=== PATIENT | female | born 1970 | race Caucasian/White ===

== ENCOUNTER 2019-01-09 16:34 | Observation (INO) ==
--- NOTE | 2019-01-09 16:47 | Emergency Department Note ---
Disposition Clinical Impression: EKG abnormality Chest pain Qualifiers: Chest pain type: unspecified Qualified Code(s): R07.9 - Chest pain, unspecified Pericarditis Qualifiers: Pericarditis type: idiopathic Chronicity: acute Qualified Code(s): I30.0 - Acute nonspecific idiopathic pericarditis Disposition: Admitted As Inpatient Condition: Undetermined Referrals: Nikolas Abbasi MD [Primary Care Provider] - Forms: ED Satisfaction Letter Time of Disposition: 19:00 Chest Pain HPI - General Chief Complaint: ED Chest Pain Stated Complaint: EKG Changes Time Seen by Provider: 01/09/19 16:43 Source: patient Mode of arrival: wheelchair Limitations: no limitations Vital Signs Reviewed: Yes Nursing Notes Reviewed: Yes - History of Present Illness HPI Narrative: 48-year-old female with no previous medical history arrives to the emergency Department complaint of pleuritic type chest pain that is dull in nature that exacerbated with taking a deep breath that is retrosternal radiating into her lower jaw. Patient states this started, days ago is progressively worse this morning. Went to PCP this morning they performed an EKG which demonstrates mildly diffuse ST elevation or MT depression. Patient was noted to be tachycardic. The patient had a near syncopal episode and that is what triggered her going to the PCP. Patient denies any associated difficulty breathing at this time and states that she has been experiencing intermittent episodes of di fficulty breathing. No history of DVT or PE, no hemoptysis, unilateral excellent, recent surgeries or immobilizations. Patient states she has never been experiencing anything like this in the past. She denies any prodromal symptoms to include recent illness, fever, cough, chills. - Related Data Previous Rx's Medication Instructions Recorded Ciprofloxacin OPTH Soln [Ciloxan 2 drop LEFT EYE Q6HR #1 bottle 11/14/15 OPTH Soln] Hydrocodone/Acetaminophen [[place] 1 tab PO TID PRN #10 tab 11/14/15 5-325 Tablet] Allergies Allergy/AdvReac Type Severity Reaction Status Date / Time fluoxetine AdvReac Hives Verified 11/14/15 21:01 All systems ED: reviewed and negative except as stated. Constitutional: Reports: weakness. Denies: fever, chills ENT ED: Denies: dysphagia Cardiovascular: Reports: chest pain, dyspnea on exertion, syncope (near syncope). Denies: orthopnea, edema Respiratory: Reports: dyspnea. 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 history - Social History Smoking Status: Never smoker Alcohol use: Reports: none Drug use: Reports: none Physical Exam - General Limitations: no limitations General appearance: alert, in no apparent distress - Head Head exam: atraumatic, normocephalic, normal inspection - Eye Eye exam: Present: normal appearance, PERRL, EOMI - ENT ENT exam: normal exam, normal oropharynx, mucous membranes moist - Neck Neck exam: Present: normal inspection, full ROM, trachea midline - Chest Chest inspection: Present: normal inspection, symmetric chest wall rise - Respiratory Respiratory exam: Present: normal lung sounds bilaterally - Cardiovascular Cardiovascular exam: Present: normal rhythm, tachycardia, normal heart sounds - Abdominal Exam Abdominal exam: Present: soft, Non-Tender. Absent: tenderness, distention, guarding, rebound, rigidity - Extremities Exam Extremities exam: Present: normal inspection, full ROM, normal capillary refill. Absent: tenderness, pedal edema - Neurological Exam Neurological exam: Present: alert, oriented X3 - Skin Skin exam: Present: warm, dry, intact, normal color Course Vital Signs Temperature 99.1 F 01/09/19 16:42 Pulse Rate 108 01/09/19 16:42 Respiratory Rate 18 01/09/19 16:42 Blood Pressure 107/69 01/09/19 16:42 O2 Sat by Pulse Oximetry 98 01/09/19 16:42 Temperature 99.1 F 01/09/19 16:42 Pulse Rate 112 01/09/19 18:26 Respiratory Rate 18 01/09/19 18:26 Blood Pressure 95/74 01/09/19 18:26 O2 Sat by Pulse Oximetry 97 01/09/19 18:26 Oxygen Delivery Oxygen Delivery Room Air Chest Pain - MDM Narrative Medical decision making narrative: His workup in the emergency department demonstrates findings consistent with pericarditis. Patient was given aspirin and colchicine here in the ED. Chest x-ray, troponin, d-dimer all negative. The patient is a mild leukocytosis well. I spoke with on-call cardiology, Dr. Hoffman who agree to plan of care. No further recommendations noted. Patient will be admitted to the hospital this time. Accepted by Dr. Hudson. - Lab Data Lab results reviewed: Yes I reviewed the patient's lab results. Result diagrams: 01/09/19 16:44 01/09/19 16:44 Lab Results 01/09/19 01/09/19 01/09/19 Range/Units 16:44 16:44 16:44 WBC 11.3 H (4.3-11.1) K/mcL RBC 4.01 (3.82-4.97) M/mcL Hgb 12.7 (11.5-15.4) g/dL Hct 37.5 (35.3-44.9) % MCV 93.5 (83.0-100.0) fL MCH 31.7 (28.0-33.3) pg MCHC 33.9 (31.6-35.5) g/dL RDW 11.3 L (11.5-14.5) % Plt Count 231 (140-400) K/mcL MPV 10.0 (9.4-12.4) fL Immature Gran % 0.4 (0-4) % Seg Neutrophils % 77.8 % Lymphocytes % 15.3 % Monocytes % 5.5 % Eosinophils % 0.6 % Basophils % 0.4 % Neutrophils # 8.8 (1.6-8.9) K/mcL Lymphocytes # 1.7 (0.6-4.6) K/mcL Monocytes # 0.6 (0.0-1.3) K/mcL Eosinophils # 0.1 (0.0-0.6) K/mcL Basophils # 0.0 (0.0-0.2) K/mcL D-Dimer 273 (0-500) ng/mLFEU Sodium 142 (136-145) mEq/L Potassium 3.8 (3.5-5.1) mEq/L Chloride 106 (98-107) mEq/L Carbon Dioxide 26 (23-29) mEq/L BUN 12 (6-20) mg/dL Creatinine 0.67 (0.60-1.20) mg/dL Est GFR ( Amer) > 60 (> 60) Est GFR (Non-Af Amer) > 60 (> 60) BUN/Creatinine Ratio 18 (6-26) Glucose 118 H (70-105) mg/dL Calculated Osmolality 295 (280-300) Calcium 9.4 (8.6-10.3) mg/dL Troponin I < 0.03 (< 0.04) ng/mL - Radiology Data Radiology results reviewed: Yes I reviewed the patient's radiology results. Chest X-Ray 01/09/19 16:43 IMPRESSION: No acute findings. D/ / Alfred Day / Alfred Day Interpreting Provider: Alfred Day - EKG Data EKG attestation: Yes I reviewed and interpreted this EKG. EKG results narrative: EKG: Heart rate 105 beats for minute. Sinus tachycardia. No ST depression noted. Mild ST depression but appears baseline compared to TP interval. There does appear to be diffuse MT depression that is noted throughout particular lead to, aVF, V5.
[2019-01-09 17:01] LABS: Basophils % 0.4 %; Eosinophils # 0.1 K/mcL (0.0-0.6); Eosinophils % 0.6 %; Hematocrit 37.5 % (35.3-44.9); Hemoglobin 12.7 g/dL (11.5-15.4); Immature Granulocytes % 0.4 % (0-4); Lymphocytes # 1.7 K/mcL (0.6-4.6); Lymphocytes % 15.3 %; Mean Corpuscular HGB Conc 33.9 g/dL (31.6-35.5); Mean Corpuscular Hemoglobin 31.7 pg (28.0-33.3); Mean Corpuscular Volume 93.5 fL (83.0-100.0); Monocytes # 0.6 K/mcL (0.0-1.3); Monocytes % 5.5 %; Neutrophils # 8.8 K/mcL (1.6-8.9); Platelet Count 231 K/mcL (140-400); Red Blood Count 4.01 M/mcL (3.82-4.97); Red Cell Distribution Width 11.3 % (11.5-14.5); Segmented Neutrophils % 77.8 %
[2019-01-09 17:54] LABS: BUN/Creatinine Ratio 18 (6-26); Blood Urea Nitrogen 12 mg/dL (6-20); Calcium 9.4 mg/dL (8.6-10.3); Carbon Dioxide 26 mEq/L (23-29); Chloride 106 mEq/L (98-107); Glucose 118 mg/dL (70-105); Osmolality,Calculated 295 (280-300); Potassium 3.8 mEq/L (3.5-5.1); Sodium 142 mEq/L (136-145); Troponin I < 0.03 ng/mL (< 0.04); eGFR For Non-African Americans > 60 (> 60)
[2019-01-09] MEDS ORDERED: Colchicine 0.6 MG TABLET PO ONE (18:01)
[2019-01-09] MEDS ORDERED: Aspirin 325 MG TABLET PO ONE (18:01)
--- NOTE | 2019-01-09 18:04 | Emergency Department Note ---
Disposition Clinical Impression: EKG abnormality Chest pain Qualifiers: Chest pain type: unspecified Qualified Code(s): R07.9 - Chest pain, unspecified Disposition: Admitted As Inpatient Condition: Good Forms: ED Satisfaction Letter Time of Disposition: 18:04 Chest Pain HPI - General Chief Complaint: ED Chest Pain Stated Complaint: EKG Changes Time Seen by Provider: 01/09/19 16:43 Source: patient Mode of arrival: wheelchair Limitations: no limitations - History of Present Illness Severity scale (1-10): 4 - Related Data Previous Rx's Medication Instructions Recorded Ciprofloxacin OPTH Soln [Ciloxan 2 drop LEFT EYE Q6HR #1 bottle 11/14/15 OPTH Soln] Hydrocodone/Acetaminophen [[place] 1 tab PO TID PRN #10 tab 11/14/15 5-325 Tablet] Allergies Allergy/AdvReac Type Severity Reaction Status Date / Time fluoxetine AdvReac Hives Verified 11/14/15 21:01 Constitutional: Reports: weakness. Denies: fever, chills ENT ED: Denies: dysphagia Cardiovascular: Reports: chest pain, dyspnea on exertion, syncope (near syncope). Denies: orthopnea, edema Respiratory: Reports: dyspnea. 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 history - Social History Smoking Status: Never smoker Alcohol use: Reports: none Drug use: Reports: none Physical Exam - General Limitations: no limitations General appearance: alert, in no apparent distress Course Vital Signs Temperature 99.1 F 01/09/19 16:42 Pulse Rate 108 01/09/19 16:42 Respiratory Rate 18 01/09/19 16:42 Blood Pressure 107/69 01/09/19 16:42 O2 Sat by Pulse Oximetry 98 01/09/19 16:42 Temperature 99.1 F 01/09/19 16:42 Pulse Rate 105 01/09/19 17:46 Respiratory Rate 16 01/09/19 17:46 Blood Pressure 90/57 01/09/19 17:46 O2 Sat by Pulse Oximetry 97 01/09/19 17:46 Oxygen Delivery Oxygen Delivery Room Air Chest Pain - Lab Data Result diagrams: 01/09/19 16:44 01/09/19 16:44 Lab Results 01/09/19 01/09/19 01/09/19 Range/Units 16:44 16:44 16:44 WBC 11.3 H (4.3-11.1) K/mcL RBC 4.01 (3.82-4.97) M/mcL Hgb 12.7 (11.5-15.4) g/dL Hct 37.5 (35.3-44.9) % MCV 93.5 (83.0-100.0) fL MCH 31.7 (28.0-33.3) pg MCHC 33.9 (31.6-35.5) g/dL RDW 11.3 L (11.5-14.5) % Plt Count 231 (140-400) K/mcL MPV 10.0 (9.4-12.4) fL Immature Gran % 0.4 (0-4) % Seg Neutrophils % 77.8 % Lymphocytes % 15.3 % Monocytes % 5.5 % Eosinophils % 0.6 % Basophils % 0.4 % Neutrophils # 8.8 (1.6-8.9) K/mcL Lymphocytes # 1.7 (0.6-4.6) K/mcL Monocytes # 0.6 (0.0-1.3) K/mcL Eosinophils # 0.1 (0.0-0.6) K/mcL Basophils # 0.0 (0.0-0.2) K/mcL D-Dimer 273 (0-500) ng/mLFEU Sodium 142 (136-145) mEq/L Potassium 3.8 (3.5-5.1) mEq/L Chloride 106 (98-107) mEq/L Carbon Dioxide 26 (23-29) mEq/L BUN 12 (6-20) mg/dL Creatinine 0.67 (0.60-1.20) mg/dL Est GFR ( Amer) > 60 (> 60) Est GFR (Non-Af Amer) > 60 (> 60) BUN/Creatinine Ratio 18 (6-26) Glucose 118 H (70-105) mg/dL Calculated Osmolality 295 (280-300) Calcium 9.4 (8.6-10.3) mg/dL Troponin I < 0.03 (< 0.04) ng/mL Attestation Statement - Attestation Attestation: I examined this patient and my medical decision-making was reviewed with the Resident Physician. I agree with the documented findings, disposition and treatment plan as described except to the extent set forth below. 48-year-old female presents to the emergency room for chest pain. Started around noon. Started shortly thereafter eating a hamburger today. She denied any recent sickness or illness in the past few days. No fevers or chills. No cough or sputum production. No vomiting or diarrhea. No history of coronary disease. No history of pulmonary embolus. She has no history of any blood clotting problems. She states the pain was, sharp and went up to the top of her chest. She states the pain is better when she sits up and it is worse when she lies flat. She has no history of pericarditis. Her EKG was concerning for some [place] depression with some ST elevations with no reciprocal changes which made us think this could be more related to a pericarditis issue. Again she denies any recent sickness or illness or any viral infections recently. Her troponin was negative. Chest x-ray was negative. Remaining lab work was negative. We will consult with cardiology. Patient will need to be admitted. EKG was reviewed with the resident and I agree with his documentation.
--- NOTE | 2019-01-09 20:09 | Internal Med History&Physical ---
<Daniel Shen S - Last Filed: 01/09/19 21:54> Date of Encounter: 01/09/19 Time of Encounter: 20:56 Internal Medicine - H&P: HPI Chief complaint: chest pain Admitted From: Home Plans for Post Hospital Care: Home History of present illness: Ms. Mcduffie is a 48 year old female with no significant PMH. She presented to the ER with the chief complaint of sudden onset chest pain that was worse with deep breathing and was dull and radiated into her jaw. She denies any radiation to the back or down her arm but did report some numbness/tingling down the right arm. She said she has had worsening weakness for months and over the last few days it has gotten acutely worse. She states that the chest pain was abrupt in onset and she had some SOB with it, which has now resolves. She went to her family doctor who did an EKG showing ST segment changes and NE depressions. She denies any recent illness, travel outside the country, flu like symptoms, contact with sick children. She denies history of IVDU, HIV, or blood borne infxn. She denies palpiltations, N/V/D, abdominal pain, fevers/chills, or hemoptysis. She is otherwise without complaint. She was found to have ST segment changes and a depressed NE interval on EKG in the ER. Troponin was negative. D- dimer within normal limits. XR chest negative for acute change. She will be admitted for further evaluation. Past Med Surg Social Fam HX - Past Medical History Medical history: no medical history - Past Surgical History Surgical History: non-contributory - Social History Smoking Status: Never smoker Smokeless Tobacco Status: No Alcohol use: none Drug use: none - Family History Mother Adopted: No Race: Hx Family Respiratory Disorders: Yes Father Adopted: No Race: Hx Family Endocrine Disorder: Yes Internal Medicine - H&P: Meds Allergy/AdvReac Type Severity Reaction Status Date / Time fluoxetine AdvReac Hives Verified 11/14/15 21:01 All Systems PM: A 10-system review of systems was performed and is negative for pertinent findings except as documented above in the HPI. - Constitutional Constitutional: lethargy, malaise, weakness, no chills, no fever(s) - EENT Eyes: no blurry vision, no change in vision Ears: no tinnitus Nose, mouth and throat: no bleeding gums, no epistaxis - Cardiovascular Cardiovascular ROS IM: chest pain, dyspnea, dyspnea on exertion - Respiratory Respiratory: dyspnea, dyspnea on exertion, pain on inspiration, no cough, no hemoptysis, no excessive phlegm production - Gastrointestinal Gastrointestinal: no abdominal pain, no diarrhea, no nausea, no vomiting - Genitourinary Genitourinary: no dysuria, no hematuria - Musculoskeletal Musculoskeletal ROS IM: muscle weakness, myalgias, tingling - Integumentary Integumentary IM: no rash, no skin ulcer - Neurological Neurological ROS: dizziness, numbness, tingling, weakness - Hematologic/Lymphatic Hematologic/Lymphatic: no easy bleeding, no easy bruising - Constitutional Vitals: Temp Pulse Resp BP Pulse Ox 99.1 F 106 16 94/62 98 01/09/19 16:42 01/09/19 19:33 01/09/19 19:33 01/09/19 19:33 01/09/19 19:33 General appearance: Present: cooperative, mild distress, A&O X 3, answers questions appropriately Exam: general - aox3, mildly uncomfortable, laying in bed, speaking in full sentences heent - MMM, NCAT, no scleral icterus neck - no jvd, trachea midline cardio - tacycardia, s1s2 cta no mrg back - no rash, brusing or tenderness lungs - ctab, no wheeze/rhonchi/rales, not in respiratory distress abd - soft, ntnd, no peritoneal signs or rebound/guarding extremities - moves all extremities equally, strength 5/5 UE/LE neuro - no FND, sensation intact psych - anxious skin - warm,dry,intact Internal Med - H&P Results - Labs CBC & Chem 7: 01/09/19 16:44 01/09/19 16:44 Labs: Short CBC 01/09/19 Range/Units 16:44 WBC 11.3 H (4.3-11.1) K/mcL Hgb 12.7 (11.5-15.4) g/dL Hct 37.5 (35.3-44.9) % Plt Count 231 (140-400) K/mcL Neutrophils # 8.8 (1.6-8.9) K/mcL BMP 05/23/19 16:44 Sodium 142 Potassium 3.8 Chloride 106 Carbon Dioxide 26 BUN 12 Creatinine 0.67 Glucose 118 H Calcium 9.4 Cardiac Enzymes 01/09/19 Range/Units 16:44 Troponin I < 0.03 (< 0.04) ng/mL - Impressions ITS Impressions Chest X-Ray 01/09/19 16:43 IMPRESSION: No acute findings. D/ / Alfred Day / Alfred Day Interpreting Provider: Alfred Day - Assessment and Plan (1) Chest pain Current Visit: Yes Status: Acute Assessment and plan: Pt reported sudden onset chest pain radiating into the jaw this afternoon - (+) weakness x 2-3 months, no weight loss - denies hx of travel, contact with sick peoples, or new medications - denies family hx or personal hx of rheumatologic disorders - sister does have a hx of pericarditis, unknown precipitant Likely secondary to pericarditis EKG showed diffuse ST elevations, tacycardia and NE depression in lead II XR chest negative for acute cardiopulmonary process D-dimer WNL Troponin negative x1 Pt is UTD on age related cancer screenings, including mammogram; denies personal hx of cancer Consider ruling out rheumatologic disorders and outpatient rheumatology follow u p FMF is known to cause pericarditis Does deny dry eyes and mouth Denies dysphagia, s/s of raynaud's dz, skin tightening Denies blunt trauma to the chest Denies history of STD, hepatitis, IVDU, or HIV infxn Pt does not meet predictors for severe illnesses of acute pericarditis Plan: - cardiology consulted recommended starting ASA and colchchine in the ER ECHO pending start colchichine 0.6 mg BID, indomethacin 50mg PO - pain control with oxycodone prn - ONI pending, ESR/CRP pending - continue telemetry monitoring - respiratory infxn panel pending, r/o viral induced - FEN: regular diet - DVT prophylaxis: sq heparin - dispo: cardiology workup, consider rheumatology workup Qualifiers: Chest pain type: other chest pain Qualified Code(s): R07.89 - Other chest pain; R07.8 - Other chest pain (2) Pericarditis Current Visit: Yes Status: Suspected Assessment and plan: Suspected. See above for chest pain. Qualifiers: Pericarditis type: idiopathic Chronicity: acute Qualified Code(s): I30.0 - Acute nonspecific idiopathic pericarditis (3) DVT prophylaxis Current Visit: Yes Status: Acute Assessment and plan: sq heparin (4) Tachycardia Current Visit: Yes Status: Acute Assessment and plan: Secondary to suspected pericarditis. (5) EKG abnormality Current Visit: Yes Status: Acute Assessment and plan: EKG showed diffuse ST segment deviations, NE depressions in lead II, and tacycardia. Cardiology consulted in the ER, likely due to pericarditis. (6) SIRS (systemic inflammatory response syndrome) Current Visit: Yes Status: Acute Assessment and plan: Meets SIRS criteria for WBC and HR, likely secondary to acute pericarditis. Will monitor labs and VS. No abx indicated. (7) Hypotension Current Visit: Yes Status: Acute Assessment and plan: Pt reports hypotension chronically. Will give 2L 0.9% NS and continue on 125cc/hr NS for maintenance fluid. Qualifiers: Hypotension type: unspecified hypotension type Qualified Code(s): I95.9 - Hypotension, unspecified - Time Spent With Patient Total time spent is greater than 50% in coordination of care (as documented) at patient's floor/unit and/or counseling patient: 25 - 35 minutes <Luh Flores - Last Filed: 01/09/19 23:11> Date of Encounter: 01/09/19 All Systems PM: A 10-system review of systems was performed and is negative for pertinent findings except as documented above in the HPI. - Constitutional Vitals: Temp Pulse Resp BP Pulse Ox 98.1 F 93 12 84/64 98 01/09/19 23:02 01/09/19 23:02 01/09/19 23:02 01/09/19 23:02 01/09/19 23:02 Internal Med - H&P Results - Labs CBC & Chem 7: 01/09/19 16:44 01/09/19 16:44 Labs: Short CBC 01/09/19 Range/Units 16:44 WBC 11.3 H (4.3-11.1) K/mcL Hgb 12.7 (11.5-15.4) g/dL Hct 37.5 (35.3-44.9) % Plt Count 231 (140-400) K/mcL Neutrophils # 8.8 (1.6-8.9) K/mcL BMP 01/09/19 16:44 Sodium 142 Potassium 3.8 Chloride 106 Carbon Dioxide 26 BUN 12 Creatinine 0.67 Glucose 118 H Calcium 9.4 Cardiac Enzymes 01/09/19 Range/Units 16:44 Troponin I < 0.03 (< 0.04) ng/mL - Impressions ITS Impressions Chest X-Ray 01/09/19 16:43 IMPRESSION: No acute findings. D/ / Alfred Day / Alfred Day Interpreting Provider: Alfred Day - Assessment and Plan (1) Chest pain Current Visit: Yes Status: Acute Qualifiers: Chest pain type: other chest pain Qualified Code(s): R07.89 - Other chest pain; R07.8 - Other chest pain (2) EKG abnormality Current Visit: Yes Status: Acute (3) Pericarditis Current Visit: Yes Status: Suspected Qualifiers: Pericarditis type: idiopathic Chronicity: acute Qualified Code(s): I30.0 - Acute nonspecific idiopathic pericarditis (4) DVT prophylaxis Current Visit: Yes Status: Acute (5) Tachycardia Current Visit: Yes Status: Acute (6) SIRS (systemic inflammatory response syndrome) Current Visit: Yes Status: Acute (7) Hypotension Current Visit: Yes Status: Acute Qualifiers: Hypotension type: unspecified hypotension type Qualified Code(s): I95.9 - Hypotension, unspecified - Time Spent With Patient Total time spent is greater than 50% in coordination of care (as documented) at patient's floor/unit and/or counseling patient: - Attending Attestation I performed a history and physical exam of the patient on 01/09/19 and discussed management with the resident. I reviewed the resident's note and agree with the documented findings and plan of care. Jackelyn Mcduffie is a 48 year old woman who presents to the emergency room with complaints of 1 day of chest pain accentua prasanna with deep breaths. No concomitant fever or chills reported. CXR w/o anomalies noted. She was tachycardic and somewhat hypotensive on arrival. EKG as reviewed by me showed diffuse ST elevations. We have the concern for acute pericarditis, possibly viral in etiology however given a family history of a similar condition, one should rule out a rheumatologic or familial entity. Will start NSAIDs in conjunction with colchicine, order a TTE to ensure there is no effusion. Fluid support as needed. Check acute phase reactants. Monitor on telemetry. BIANCA SAWANT.
[2019-01-09] MEDS ORDERED: Naloxone 0.4 MG/ML INJ IVP PRN (20:49)
[2019-01-09 21:19] LABS: Magnesium 1.9 mg/dL (1.6-2.6)
[2019-01-09] MEDS ORDERED: 0.9 % Sodium Chloride 1,000 ML IVC ONE (21:45)
[2019-01-09] MEDS ORDERED: 0.9 % Sodium Chloride 1,000 ML IVC SCH ×2 (21:45)
[2019-01-09] MEDS ORDERED: *HR* HYDROcodone/Acet 5/325 mg TABLET PO PRN (21:49)
[2019-01-09] MEDS ORDERED: *HR* OxyCODONE Immed Rel 5 MG TABLET PO PRN (21:49)
[2019-01-09] MEDS ORDERED: Acetaminophen 325 MG TABLET PO PRN (21:49)
[2019-01-09] MEDS: *HR* Heparin 5,000 UNIT/ML VIAL SQ SCH (23:20)
[2019-01-10 04:30] LABS: Hematocrit 36.4 % (35.3-44.9); Mean Corpuscular Volume 94.1 fL (83.0-100.0); Mean Platelet Volume 10.8 fL (9.4-12.4); Platelet Count 211 K/mcL (140-400); Red Blood Count 3.87 M/mcL (3.82-4.97); Red Cell Distribution Width 11.5 % (11.5-14.5)
[2019-01-10 04:50] LABS: BUN/Creatinine Ratio 19 (6-26); Blood Urea Nitrogen 10 mg/dL (6-20); Calcium 8.6 mg/dL (8.6-10.3); Carbon Dioxide 25 mEq/L (23-29); Chloride 109 mEq/L (98-107); Glucose 107 mg/dL (70-105); Osmolality,Calculated 294 (280-300); Potassium 3.7 mEq/L (3.5-5.1); Sodium 142 mEq/L (136-145); eGFR For Non-African Americans > 60 (> 60)
[2019-01-10] MEDS: *HR* Heparin 5,000 UNIT/ML VIAL SQ SCH ×2 (05:36→18:00)
[2019-01-10 06:46] LABS: Adenovirus Not Detected (Not Detect); Bordetella Pertussis Not Detected (Not Detect); Chlamydophila pneumoniae Not Detected (Not Detect); Coronavirus 229E Not Detected (Not Detect); Coronavirus HKU1 Not Detected (Not Detect); Coronavirus NL63 Not Detected (Not Detect); Coronavirus OC43 Not Detected (Not Detect); Human Metapneumovirus Not Detected (Not Detect); Human Rhinovirus/Enterovirus Not Detected (Not Detect); Influenza A Subtype 2009 H1 Not Detected (Not Detect); Influenza A Untypeable Not Detected (Not Detect); Influenza B Not Detected (Not Detect); Mycoplasma pneumoniae Not Detected (Not Detect); Parainfluenza Virus 1 Not Detected (Not Detect); Parainfluenza Virus 2 Not Detected (Not Detect); Parainfluenza Virus 3 Not Detected (Not Detect); Parainfluenza Virus 4 Not Detected (Not Detect); Respiratory Syncytial Virus Not Detected (Not Detect)
[2019-01-10] MEDS: Indomethacin 25 MG CAPSULE PO SCH ×3 (09:34→18:01)
[2019-01-10] MEDS: Colchicine 0.6 MG TABLET PO SCH ×2 (09:34→20:10)
--- NOTE | 2019-01-10 10:04 | Cardiology Consult Note ---
<Lisa Mason - Last Filed: 01/10/19 10:19> Date of Encounter: 01/10/19 Time of Encounter: 09:00 Assessment and Plan (1) Chest pain Current Visit: Yes Status: Acute Atypical/typical chest pain symptoms. ECG similar to baseline. Also reports gum discomfort, improved after x4 baby asa Pain free upon exam. Initial troponin negative--collected 01/09 upon admission, will add troponin to this AM labs. Echo pending. Recommend exercise nuclear stress, will plan for AM (if trop remains negative) given patient had breakfast. Further recommendations to follow. Qualifiers: Chest pain type: other chest pain Qualified Code(s): R07.89 - Other chest pain; R07.8 - Other chest pain (2) Pericarditis Current Visit: Yes Status: Suspected TN depression noted on ECG with ST elevation in aVR. Atypical/typical symptoms. Denies recent cough or flu-like illness. ESR normal, CRP elevated. Symptoms have currently resolved, on colchine. Continue to monitor. Qualifiers: Pericarditis type: idiopathic Chronicity: acute Qualified Code(s): I30.0 - Acute nonspecific idiopathic pericarditis Discussion w patient/family: The assessment and plan as outlined above was discussed with the patient and/or family members who expressed understanding and agreement. All questions were answered. Thank you for involving us in the care of your patient. Please call with any questions. The patient will be discussed and reviewed with Dr. Sánchez; changes to be made accordingly. History of Present Illness Consult date: 01/10/19 Requesting physician: Daniel Shen Consult reason: Pericarditis Chief complaint: chest pain History of present illness: Ms. Mcduffie is a 48 year old female with no significant PMHx who presented to the ED with complaints of chest/neck discomfort that started at work yesterday. Chest discomfort described as heaviness/pressure that extends into neck; associated symptoms include gum pain/discomfort and shortness of breath. She notes that chest discomfort does worsen with lying down and improves with sitting up. Gum discomfort reportedly resolved after taking x4 baby aspirin. She also reports worsening fatigue over the past 1-2 months. Denies recent cough or flu-like illness. Cardiology consulted today for concern of pericarditis. Initial troponin negative. Past Med Surg Social Fam HX - Past Medical History Attestation: Yes The following information was validated with the patient. Medical history: no medical history Psychiatric history: no psych history - Past Surgical History Surgical History: non-contributory, hysterectomy - Social History Smoking Status: Never smoker Smokeless Tobacco Status: No Alcohol use: none Drug use: none - Family History Mother Adopted: No Race: Living Status: Age at : 54 Hx Family Respiratory Disorders: Yes Hx Family Genitourinary Disorders: Yes (kidney failure) Father Adopted: No Race: Living Status: Cause of : 30 Hx Family Respiratory Disorders: Yes (empysema) Hx Family Endocrine Disorder: Yes Sister Twin of Family Member: Yes Hx Family Cardiac Disorders: Yes (pericarditis) Medications and Allergies No Known Home Drugs 01/10/19 [History] Allergy/AdvReac Type Severity Reaction Status Date / Time fluoxetine AdvReac Hives Verified 01/10/19 11:27 All Systems Review: The remainder of the systems were reviewed and are negative - Cardiovascular Cardiovascular: as per HPI Physical Examination Vital Signs, Last 4 Hours Temp Pulse Resp BP Pulse Ox 01/10/19 07:25 98.8 F 96 16 102/59 95 General: Conversant, No Apparent Distress HEENT: Atraumatic, Normocephaly, Mucus Membranes Moist Neck: No JVD, Normal carotid pulses Cardiac: Reg Rate and Rhythm, Normal S1 and S2, No Murmur Lungs: Normal Breath Sounds, No Wheeze, Rales, Rhonchi Neuro: Alert and responsive, No focal deficits noted Abdomen: Soft, Non-Tender Skin: No rashes noted on visualized skin Musculoskeletal: No Chest Wall Tenderness Extremities: No Clubbing, No Cyanosis, No Edema, Normal Pulses Results 01/10/19 02:56 01/10/19 02:56 Lab Results 01/09/19 01/09/19 01/09/19 16:44 16:44 16:44 WBC 11.3 H Hgb 12.7 Hct 37.5 Plt Count 231 D-Dimer 273 Sodium 142 Potassium 3.8 Chloride 106 Carbon Dioxide 26 BUN 12 Creatinine 0.67 Glucose 118 H Calcium 9.4 Magnesium 1.9 Troponin I < 0.03 01/10/19 01/10/19 02:56 02:56 WBC 6.5 Hgb 12.0 Hct 36.4 Plt Count 211 D-Dimer Sodium 142 Potassium 3.7 Chloride 109 H Carbon Dioxide 25 BUN 10 Creatinine 0.53 L Glucose 107 H Calcium 8.6 Magnesium Troponin I - Imaging and Cardiology Echo: pending Other Results: 12 hour tele: avg HR =101 Consult Discharge Plan - Plan Referrals: Nikolas Abbasi MD [Primary Care Provider] - <Lis Sánchez - Last Filed: 01/10/19 12:21> Date of Encounter: 01/10/19 - Attending Attestation I examined this patient and my medical decision-making was reviewed with the DIRECTOR OF GROUP COUNSELING PROGRAM. I agree with the documented findings, disposition and treatment plan as described. Ms. Mcduffie presents with chest discomfort. Serial troponins negative. ECG demonstrates nonspecific ST findings possibly consistent with early repolarization. There are findings suggestive of pericarditis. However, unable to compare to old ECG in 2014 due to baseline noise on that study. No known sick contacts. Viral serology negative. Symptoms worsen with laying flat. CRP is elevated. Echo demonstrates small pericardial effusion. In total, presentation may be consistent with pericarditis. Patient presently being treated with NSAIDS/colchicine by primary team. Consider autoimmune workup as outpatient. Assessment and Plan Discussion w patient/family: The assessment and plan as outlined above was discussed with the patient and/or family members who expressed understanding and agreement. All questions were answered. Thank you for involving us in the care of your patient. Please call with any questions. History of Present Illness History of present illness: Ms. Mcduffie is a 48 year old female All Systems Review: The remainder of the systems were reviewed and are negative Physical Examination Vital Signs, Last 4 Hours Pulse Resp BP Pulse Ox 01/10/19 11:51 86 16 106/64 99 Results 01/10/19 02:56 01/10/19 02:56 Lab Results 01/09/19 01/09/19 01/09/19 16:44 16:44 16:44 WBC 11.3 H Hgb 12.7 Hct 37.5 Plt Count 231 D-Dimer 273 Sodium 142 Potassium 3.8 Chloride 106 Carbon Dioxide 26 BUN 12 Creatinine 0.67 Glucose 118 H Calcium 9.4 Magnesium 1.9 Troponin I < 0.03 01/10/19 01/10/19 01/10/19 02:56 02:56 10:44 WBC 6.5 Hgb 12.0 Hct 36.4 Plt Count 211 D-Dimer Sodium 142 Potassium 3.7 Chloride 109 H Carbon Dioxide 25 BUN 10 Creatinine 0.53 L Glucose 107 H Calcium 8.6 Magnesium Troponin I < 0.03
--- NOTE | 2019-01-10 16:37 | Internal Med Progress Note ---
<Russell Velasquez - Last Filed: 01/10/19 16:37> Hospitalist Progress Note - Encounter Date of Encounter: 01/10/19 Time of Encounter: 10:15 - Subjective Interval History: Patient was seen and examined at bedside; states that she is feeling well. Reports that she does not have any chest pain. Also denies fever, chills, diaphoresis, visual disturbances, palpitations, nausea, vomiting, or dizziness. Cardiology is following; patient will undergo a nuclear stress test tomorrow morning. She is currently nothing by mouth at midnight. Being treated for suspected pericarditis with colchicine and indomethacin. Vital signs are stable . - Exam Vitals: Temp Pulse Resp BP Pulse Ox 98.1 F 90 18 93/63 99 01/10/19 15:38 01/10/19 15:38 01/10/19 15:38 01/10/19 15:38 01/10/19 11:51 Exam: General: A&O X3, conversant, no acute distress Head: atraumatic, normocephalic Eye: PERRL, EOMI, conjuntiva pink, sclera anicteric Neck: Supple, trachea midline; No lymphadenopathy Respiratory: CTAB. No accessory muscle use, wheezes, rales, or rhonchi Cardiovascular: RRR, +S1, +S2; no murmurs, rubs, gallops Abdomen: Soft, nontender Extremities: warm, radial pulses palpable and symmetrical Neurological: CN II-XII intact Psychiatric: Normal affect, normal mood Skin: Dry, intact - Assessment and Plan (1) Pericarditis Current Visit: Yes Status: Suspected Assessment and Plan: - Initially presented with chest pain, worse with inspiration - EKG on arrival demonstrated: HR 105 bpm, sinus tachycardia, diffuse MS depression, particularly in lead II, aVF, V5; no ST depression noted - Initial labs demonstrated elevated white count; has since decreased to 6.5 - Respiratory infection panel was negative - ESR was within normal limits, CRP was elevated - In the emergency department, patient was initially given 3 L of normal saline, as well as a one-time dose of aspirin and colchicine - On exam today, patient does not complain of any chest pain or shortness of breath - Cardiology was consulted; currently following Plan: - Colchicine 0.6 mg twice a day, indomethacin 50 mg 3 times a day - Recommendations of cardiology, patient will undergo an exercise nuclear stress test tomorrow morning - NPO at midnight (2) Chest pain Current Visit: Yes Status: Acute Assessment and Plan: - Resolved; initially presented with atypical chest pain, made worse with i nspiration - On examination today, patient does not complain of any chest pain - Troponin negative - TTE: LVEF 60%, small pericardial effusion present Plan: - Cardiology is following; patient is currently being treated for suspected acute pericarditis - Patient will undergo a nuclear stress test tomorrow per the recommend palpitations of cardiology - Time Spent with Patient Total time spent is greater than 50% in coordination of care (as documented) at patient's floor/unit and/or counseling patient: Internal Medicine: Result - Labs CBC & Chem 7: 01/10/19 02:56 01/10/19 02:56 Labs: Short CBC 01/09/19 01/10/19 Range/Units 16:44 02:56 WBC 11.3 H 6.5 (4.3-11.1) K/mcL Hgb 12.7 12.0 (11.5-15.4) g/dL Hct 37.5 36.4 (35.3-44.9) % Plt Count 231 211 (140-400) K/mcL Neutrophils # 8.8 (1.6-8.9) K/mcL BMP 01/09/19 01/10/19 16:44 02:56 Sodium 142 142 Potassium 3.8 3.7 Chloride 106 109 H Carbon Dioxide 26 25 BUN 12 10 Creatinine 0.67 0.53 L Glucose 118 H 107 H Calcium 9.4 8.6 Cardiac Enzymes 01/09/19 01/10/19 Range/Units 16:44 10:44 Troponin I < 0.03 < 0.03 (< 0.04) ng/mL - ABG Interpretation ABG results: PT/INR, D-dimer 273 ng/mLFEU (0-500) 01/09/19 16:44 - Impressions Impressions Chest X-Ray 01/09/19 16:43 IMPRESSION: No acute findings. D/ / Alfred Day / Alfred Day Interpreting Provider: Alfred Day Echocardiogram 01/10/19 07:30 Impressions: LVEF 60%. Normal LV chamber size, wall thickness and function. Normal left ventricular diastolic function. Normal right ventricular structure and function. Unable to estimate RVSP due to lack of TR jet. There is a small pericardial effusion present. There is no echocardiographic evidence of tamponade. Left Ventricular Wall Motion: Rest Echo Findings All wall segments showed normal motion. Findings: Study Quality * Technically adequate exam. ECG Findings * Normal sinus rhythm. Left Ventricle * LVEF 60%. * Normal LV chamber size, wall thickness and function. * Normal left ventricular diastolic function. Right Ventricle * Normal right ventricular structure and function. Left Atrium * Normal left atrial size. Right Atrium * Normal right atrial size. Interatrial Septum * Interatrial septum not well evaluated. Aortic Valve * Trileaflet aortic valve with normal function. * No aortic regurgitation. * No aortic stenosis. Mitral Valve * Normal mitral valve structure and function. * No mitral regurgitation. * No mitral stenosis. Tricuspid Valve * Normal tricuspid valve structure and function. * No tricuspid regurgitation. * Unable to estimate RVSP due to lack of TR jet. Pulmonic Valve * Normal pulmonic valve structure and function. * Trace pulmonic regurgitation. Aorta * Normally sized aortic root. Pericardium * There is a small pericardial effusion present. * There is no echocardiographic evidence of tamponade. IVC * Normal IVC dimensions and inspiratory collapse. Pulmonary Artery * Normal visualized portions of the main pulmonary artery. Consult Discharge Plan - Plan Referrals: Nikolas Abbasi MD [Primary Care Provider] - <Shola Childs - Last Filed: 01/10/19 17:24> Hospitalist Progress Note - Encounter Date of Encounter: 01/10/19 - Exam Vitals: Temp Pulse Resp BP Pulse Ox 98.1 F 90 18 93/63 99 01/10/19 15:38 01/10/19 15:38 01/10/19 15:38 01/10/19 15:38 01/10/19 11:51 - Assessment and Plan (1) Chest pain Current Visit: Yes Status: Acute (2) EKG abnormality Current Visit: Yes Status: Acute (3) Pericarditis Current Visit: Yes Status: Suspected (4) DVT prophylaxis Current Visit: Yes Status: Acute (5) Tachycardia Current Visit: Yes Status: Acute (6) SIRS (systemic inflammatory response syndrome) Current Visit: Yes Status: Acute (7) Hypotension Current Visit: Yes Status: Acute - Time Spent with Patient Total time spent is greater than 50% in coordination of care (as documented) at patient's floor/unit and/or counseling patient: Internal Medicine: Result - Labs CBC & Chem 7: 01/10/19 02:56 01/10/19 02:56 Labs: Short CBC 01/10/19 Range/Units 02:56 WBC 6.5 (4.3-11.1) K/mcL Hgb 12.0 (11.5-15.4) g/dL Hct 36.4 (35.3-44.9) % Plt Count 211 (140-400) K/mcL BMP 01/09/19 01/10/19 16:44 02:56 Sodium 142 142 Potassium 3.8 3.7 Chloride 106 109 H Carbon Dioxide 26 25 BUN 12 10 Creatinine 0.67 0.53 L Glucose 118 H 107 H Calcium 9.4 8.6 Cardiac Enzymes 01/09/19 01/10/19 Range/Units 16:44 10:44 Troponin I < 0.03 < 0.03 (< 0.04) ng/mL - ABG Interpretation ABG results: PT/INR, D-dimer 273 ng/mLFEU (0-500) 01/09/19 16:44 - Impressions Impressions Echocardiogram 01/10/19 07:30 Impressions: LVEF 60%. Normal LV chamber size, wall thickness and function. Normal left ventricular diastolic function. Normal right ventricular structure and function. Unable to estimate RVSP due to lack of TR jet. There is a small pericardial effusion present. There is no echocardiographic evidence of tamponade. Left Ventricular Wall Motion: Rest Echo Findings All wall segments showed normal motion. Findings: Study Quality * Technically adequate exam. ECG Findings * Normal sinus rhythm. Left Ventricle * LVEF 60%. * Normal LV chamber size, wall thickness and function. * Normal left ventricular diastolic function. Right Ventricle * Normal right ventricular structure and function. Left Atrium * Normal left atrial size. Right Atrium * Normal right atrial size. Interatrial Septum * Interatrial septum not well evaluated. Aortic Valve * Trileaflet aortic valve with normal function. * No aortic regurgitation. * No aortic stenosis. Mitral Valve * Normal mitral valve structure and function. * No mitral regurgitation. * No mitral stenosis. Tricuspid Valve * Normal tricuspid valve structure and function. * No tricuspid regurgitation. * Unable to estimate RVSP due to lack of TR jet. Pulmonic Valve * Normal pulmonic valve structure and function. * Trace pulmonic regurgitation. Aorta * Normally sized aortic root. Pericardium * There is a small pericardial effusion present. * There is no echocardiographic evidence of tamponade. IVC * Normal IVC dimensions and inspiratory collapse. Pulmonary Artery * Normal visualized portions of the main pulmonary artery. - Attending Attestation I examined this patient and my medical decision-making was reviewed with the Resident Physician. I agree with the documented findings, disposition and tr eatment plan as described except to the extent set forth below. <Russell Velasquez - Last Filed: 01/10/19 16:37> (1) Pericarditis Qualifiers: Pericarditis type: idiopathic Chronicity: acute Qualified Code(s): I30.0 - Acute nonspecific idiopathic pericarditis (2) Chest pain Qualifiers: Chest pain type: other chest pain Qualified Code(s): R07.89 - Other chest pain; R07.8 - Other chest pain <Shola Childs - Last Filed: 01/10/19 17:24> (1) Chest pain Qualifiers: Chest pain type: other chest pain Qualified Code(s): R07.89 - Other chest pain; R07.8 - Other chest pain (3) Pericarditis Qualifiers: Pericarditis type: idiopathic Chronicity: acute Qualified Code(s): I30.0 - Acute nonspecific idiopathic pericarditis (7) Hypotension Qualifiers: Hypotension type: unspecified hypotension type Qualified Code(s): I95.9 - Hypotension, unspecified
--- NOTE | 2019-01-10 17:27 | Electrocardiograph Report ---
[address] [address] Test Date: 2019-01-09 Pat Name: Jackelyn Mcduffie Department: [id number] Room: 2NE23 Gender: F [employer]onics Engineering Technician: : 1970 Requested By: Jarred Flores Order Number: [id number] Reading MD: Richmond Olguin Measurements Intervals Lilly Rate: 105 P: 54 [place]: 138 QRS: 71 QRSD: 83 T: 58 QT: 330 QTc: 437 Interpretive Statements Sinus tachycardia Low voltage, precordial leads Electronically Signed On 01-10-2019 17:26:02 EDT by Richmond Olguin
[2019-01-11 04:45] LABS: Basophils % 0.7 %; Eosinophils # 0.1 K/mcL (0.0-0.6); Eosinophils % 3.1 %; Hematocrit 36.4 % (35.3-44.9); Hemoglobin 12.2 g/dL (11.5-15.4); Lymphocytes # 1.7 K/mcL (0.6-4.6); Lymphocytes % 36.5 %; Mean Corpuscular HGB Conc 33.5 g/dL (31.6-35.5); Mean Corpuscular Hemoglobin 31.1 pg (28.0-33.3); Mean Corpuscular Volume 92.9 fL (83.0-100.0); Mean Platelet Volume 10.5 fL (9.4-12.4); Monocytes # 0.5 K/mcL (0.0-1.3); Monocytes % 10.7 %; Neutrophils # 2.3 K/mcL (1.6-8.9); Platelet Count 204 K/mcL (140-400); Red Blood Count 3.92 M/mcL (3.82-4.97); Red Cell Distribution Width 11.2 % (11.5-14.5)
[2019-01-11 05:06] LABS: BUN/Creatinine Ratio 23 (6-26); Blood Urea Nitrogen 10 mg/dL (6-20); Calcium 8.8 mg/dL (8.6-10.3); Carbon Dioxide 26 mEq/L (23-29); Chloride 112 mEq/L (98-107); Glucose 105 mg/dL (70-105); Osmolality,Calculated 293 (280-300); Potassium 4.1 mEq/L (3.5-5.1); Sodium 142 mEq/L (136-145); eGFR For Non-African Americans > 60 (> 60)
[2019-01-11] MEDS: *HR* Heparin 5,000 UNIT/ML VIAL SQ SCH (05:47)
--- NOTE | 2019-01-11 09:05 | Cardiology Progress Note ---
Date of Encounter: 01/11/19 Time of Encounter: 09:00 Assessment and Plan (1) Chest pain Current Visit: Yes Status: Acute Per Cardiology: Troponins negative 2. Currently chest pain-free. Echo showed: Impressions: LVEF 60%. Normal LV chamber size, wall thickness and function. Normal left ventricular diastolic function. Normal right ventricular structure and function. Unable to estimate RVSP due to lack of TR jet. There is a small pericardial effusion present. There is no echocardiographic evidence of tamponade. Left Ventricular Wall Motion: Rest Echo Findings All wall segments showed normal motion. Exercise nuclear stress test pending. Qualifiers: Chest pain type: other chest pain Qualified Code(s): R07.89 - Other chest pain; R07.8 - Other chest pain (2) Pericarditis Current Visit: Yes Status: Suspected Per Cardiology: On Indocin and colchine. Qualifiers: Pericarditis type: idiopathic Chronicity: acute Qualified Code(s): I30.0 - Acute nonspecific idiopathic pericarditis Discussion w patient/family: The assessment and plan as outlined above was discussed with the patient and/or family members who expressed understanding and agreement. All questions were answered. Thank you for involving us in the care of your patient. Please call with any questions. Subjective Principal diagnosis: CP Interval history: Seen today during exercise nuclear stress test. Denies any concerns over night. Denies any chest pain, shortness of breath, palpitations. Objective Vital Signs, Last 4 Hours Temp Pulse Resp BP Pulse Ox 01/11/19 07:18 98.3 F 93 16 95/62 97 General: Conversant, No Apparent Distress HEENT: Atraumatic, Normocephaly, Mucus Membranes Moist Neck: No JVD, Normal carotid pulses Cardiac: Reg Rate and Rhythm, Normal S1 and S2, No Murmur Lungs: Normal Breath Sounds, No Wheeze, Rales, Rhonchi Neuro: Alert and responsive, No focal deficits noted Abdomen: Soft, Non-Tender Skin: No rashes noted on visualized skin Musculoskeletal: No Chest Wall Tenderness Extremities: No Clubbing, No Cyanosis, No Edema, Normal Pulses Results 01/11/19 03:54 01/11/19 03:54 Lab Results Laboratory Tests 01/09/19 01/10/19 01/11/19 16:44 10:44 03:54 Creatinine 0.44 L Est GFR (Non-Af Amer) > 60 Troponin I < 0.03 < 0.03 ITS Impressions Chest X-Ray 01/09/19 16:43 IMPRESSION: No acute findings. D/ / Alfred Day / Alfred Day Interpreting Provider: Alfred Day Echocardiogram 01/10/19 07:30 Impressions: LVEF 60%. Normal LV chamber size, wall thickness and function. Normal left ventricular diastolic function. Normal right ventricular structure and function. Unable to estimate RVSP due to lack of TR jet. There is a small pericardial effusion present. There is no echocardiographic evidence of tamponade. Left Ventricular Wall Motion: Rest Echo Findings All wall segments showed normal motion. Findings: Study Quality * Technically adequate exam. ECG Findings * Normal sinus rhythm. Left Ventricle * LVEF 60%. * Normal LV chamber size, wall thickness and function. * Normal left ventricular diastolic function. Right Ventricle * Normal right ventricular structure and function. Left Atrium * Normal left atrial size. Right Atrium * Normal right atrial size. Interatrial Septum * Interatrial septum not well evaluated. Aortic Valve * Trileaflet aortic valve with normal function. * No aortic regurgitation. * No aortic stenosis. Mitral Valve * Normal mitral valve structure and function. * No mitral regurgitation. * No mitral stenosis. Tricuspid Valve * Normal tricuspid valve structure and function. * No tricuspid regurgitation. * Unable to estimate RVSP due to lack of TR jet. Pulmonic Valve * Normal pulmonic valve structure and function. * Trace pulmonic regurgitation. Aorta * Normally sized aortic root. Pericardium * There is a small pericardial effusion present. * There is no echocardiographic evidence of tamponade. IVC * Normal IVC dimensions and inspiratory collapse. Pulmonary Artery * Normal visualized portions of the main pulmonary artery. Active Medications Acetaminophen (Tylenol) 650 mg PO Q6H PRN PRN Reason: Mild Pain/Fever Stop: 07/11/19 21:50 Hydrocodone Bitart/Acetaminophen ([place] 5-325 Mg) 1 tab PO Q6H PRN PRN Reason: Moderate Pain Stop: 07/11/19 21:50 Last Admin: 01/10/19 05:36 Dose: 1 tab Documented by: Colchicine (Colcrys) 0.6 mg PO BID LYNN Stop: 07/12/19 09:01 Last Admin: 01/10/19 20:10 Dose: 0.6 mg Documented by: Heparin Sodium (Porcine) (Heparin) 5,000 unit SQ Q12HCO [facility] Stop: 07/11/19 21:01 Last Admin: 01/11/19 05:47 Dose: 5,000 unit Documented by: Indomethacin (Indocin) 50 mg PO TIDWM [facility]; Protocol Stop: 07/12/19 08:01 Last Admin: 01/10/19 18:01 Dose: 50 mg Documented by: Naloxone HCl (Narcan) 0.4 mg IVP Q2MPRN PRN PRN Reason: SEE COMMENTS Stop: 07/11/19 20:50 Oxycodone HCl (Roxicodone) 10 mg PO Q6H PRN PRN Reason: Severe Pain Stop: 07/11/19 21:50 - Imaging and Cardiology Stress Test: pending Echo: report reviewed Consult Discharge Plan - Plan Referrals: Nikolas Abbasi MD [Primary Care Provider] -
[2019-01-11] MEDS: Indomethacin 25 MG CAPSULE PO SCH ×2 (10:02→14:41)
[2019-01-11] MEDS: Colchicine 0.6 MG TABLET PO SCH ×2 (10:03→14:41)
[2019-01-11 11:04] VITALS: BP 94/94
--- NOTE | 2019-01-11 14:17 | Discharge Summary ---
<Russell Velasquez - Last Filed: 01/11/19 14:18> - NOTES TO OUTPATIENT PROVIDER Notes to Outpatient Provider: Patient will need to follow-up with cardiology in the outpatient setting in 2 to 4 weeks; follow-up has been arranged. Orders not resulted at time of discharge: Pending orders 01/10/19 02:56 ONI IgG CARA rflx IFA AM 0400 01/11/19 NM maurizio perf SPECT multi [NM] Routine Date of Encounter: 01/11/19 Time of Encounter: 14:14 - Discharge Diagnosis (1) Pericarditis Priority: Primary Status: Suspected Qualifiers: Pericarditis type: idiopathic Chronicity: acute Qualified Code(s): I30.0 - Acute nonspecific idiopathic pericarditis (2) Chest pain Priority: Primary Status: Acute Qualifiers: Chest pain type: other chest pain Qualified Code(s): R07.89 - Other chest pain; R07.8 - Other chest pain Hospital course: Ms. Mcduffie is a 48 year old female with no significant PMH who presented to [facility] on 01/09/19 with a chief complaint of sudden on chest chest pain that was worse with deep inspiration. Pain was dull in character and radiated to her jaw. Also reported some numbness and tingling in her right arm. She went to her family doctor where an EKG was performed; demonstrated ST segment changes and CT depressions. Denied having recent illness or travel. Denied fevers, chills, palpitations, nausea, or vomiting. Upon arrival to the emergency department, vital signs were as follows: Temperature was 99.1, pulse 108, respiratory rate 18, blood pressure 107/69, O2 saturation 98%. Labs demonstrated an elevated white count at 11.3. Respiratory infection panel was negative. CXR demonstrated no acute findings. D-dimer and troponin were negative. EKG showed a heart rate of 105 bpm, sinus tachycardia, mild ST depression, diffuse CT depression throughout, particularly leads II, aVF and V5. Cardiology was consulted. In the emergency department, patient was initially given 3 L of normal saline, as well as a one-time dose of aspirin and colchicine, and was then started on colchicine and indomethacin for presumed pericarditis. Echocardiogram demonstrated the following: Ejection fraction of 60%, normal left ventricular chamber size, wall thickness, and function. Normal left ventricular diastolic function, normal right ventricular structure and function, small pericardial effusion, no evidence of tamponade. Nuclear stress test performed on 01/11 demonstrated the following: Resting EKG sinus rhythm with ST and CT segments suggestive of pericarditis. No baseline arrhythmias noted. Nondiagnostic for ischemia due to baseline ST segments. No arrhythmias noted during stress test. No chest pain or arrhythmias during stress test. Exercise capacity was good, patient had no chest pain. Cardiology recommends a follow-up in the outpatient setting in 2-4 weeks. Patient will be discharged on 4 weeks of indomethacin and colchicine. - Time Spent with Patient Total time spent providing and/or coordinating discharge services: - Discharge Medications Prescriptions: New Colchicine [Colcrys] 0.6 mg PO BID #60 tablet Indomethacin [Indocin] 50 mg PO TIDWM #90 capsule Home Medications: Colchicine [Colcrys] 0.6 mg PO BID #60 tablet 01/11/19 [Rx] Indomethacin [Indocin] 50 mg PO TIDWM #90 capsule 01/11/19 [Rx] Allergies/Adverse Reactions: Allergy/AdvReac Type Severity Reaction Status Date / Time fluoxetine AdvReac Hives Verified 01/10/19 11:27 Date of admission: 01/09/19 21:36 Primary care physician: Nikolas Abbasi MD Consults: 01/09/19 20:50 Consult to Cardiology [CONS] Routine Comment: Consulting Provider: Cardiology Karen Reason for Consult: suspected pericarditis Call Completed: Yes Discharging clinician: Russell Velasquez Anticipated date of discharge: 01/11/19 - Constitutional Vitals: Temp Pulse Resp BP Pulse Ox 98 F 89 16 94/94 99 01/11/19 11:02 01/11/19 11:02 01/11/19 11:02 01/11/19 11:02 01/11/19 11:02 General appearance: Present: cooperative, mild distress, A&O X 3, answers questions appropriately Exam: General: A&O X3, conversant, no acute distress Head: atraumatic, normocephalic Eye: PERRL, EOMI, conjuntiva pink, sclera anicteric Neck: Supple, trachea midline; No lymphadenopathy Respiratory: CTAB. No accessory muscle use, wheezes, rales, or rhonchi Cardiovascular: RRR, +S1, +S2; no murmurs, rubs, gallops Abdomen: Soft, nontender Extremities: warm, radial pulses palpable and symmetrical Neurological: CN II-XII intact Psychiatric: Normal affect, normal mood Skin: Dry, intact - Patient Status Disposition: Home, Self-Care Condition: Undetermined Overall status at discharge: patient is back to baseline - Discharge Instructions Follow Up With: Nikolas Abbasi MD [Primary Care Provider] - (PLEASE CALL OFFICE TO SCHEDULE A FOLLOW UP APPT. WITHIN 10 DAYS) - Diet and Activity Activity: increase activity as tolerated Diet: advance to your usual diet <Shola Childs - Last Filed: 01/11/19 16:42> Orders not resulted at time of discharge: Pending orders 01/10/19 02:56 ONI IgG CARA rflx IFA AM 0400 01/11/19 NM maurizio perf SPECT multi [NM] Routine Date of Encounter: 01/11/19 - Discharge Diagnosis (1) Chest pain Status: Acute Qualifiers: Chest pain type: other chest pain Qualified Code(s): R07.89 - Other chest pain; R07.8 - Other chest pain (2) EKG abnormality Status: Acute (3) Pericarditis Status: Suspected Qualifiers: Pericarditis type: idiopathic Chronicity: acute Qualified Code(s): I30.0 - Acute nonspecific idiopathic pericarditis (4) DVT prophylaxis Status: Acute (5) Tachycardia Status: Acute (6) SIRS (systemic inflammatory response syndrome) Status: Acute (7) Hypotension Status: Acute Qualifiers: Hypotension type: unspecified hypotension type Qualified Code(s): I95.9 - Hypotension, unspecified Hospital course: Ms. Mcduffie is a 48 year old female - Time Spent with Patient Total time spent providing and/or coordinating discharge services: Date of admission: 01/09/19 21:36 Primary care physician: Nikolas Abbasi MD Consults: 01/09/19 20:50 Consult to Cardiology [CONS] Routine Comment: Consulting Provider: Cardiology Karen Reason for Consult: suspected pericarditis Call Completed: Yes - Constitutional Vitals: Temp Pulse Resp BP Pulse Ox 98 F 89 16 94/94 99 01/11/19 11:02 01/11/19 11:02 01/11/19 11:02 01/11/19 11:02 01/11/19 11:02 - Attending Attestation I examined this patient and my medical decision-making was reviewed with the Resident Physician. I agree with the documented findings, disposition and treatment plan as described except to the extent set forth below.
[2019-01-12 09:35] LABS: ANA IgG by ELISA NONE DETECTED (None Detected)
== END 2019-01-11 15:15 | disposition home or self-care (01) ==
LOC: EMEROOARM 16:34 → 2NENU 16:34 → SUATTDRO 21:36 → 2NENU 22:03
PROVIDERS: ADMIT Internal Medicine Nephrology; ATTEND Student in an Organized Health Care Education/Training Program